=== PATIENT | female | born 1960 | race Caucasian/White ===

== ENCOUNTER 2016-05-29 09:21 | Emergency (ER) | payer OTHER ==
[~2016-05-29] VITALS: Ht 160 cm; Wt 72.6 kg
[2016-05-29 09:27] VITALS: BP 154/78; PULSE 91; RESP 16; TEMP 97.8; O2SAT 97
--- NOTE | 2016-05-29 09:27 | NUR ---
Placed in room 2 . Placed on quality assurance monitor, blood pressure machine and pulse oximeter. To gown for exam. Side rails up.Assumed care
--- NOTE | 2016-05-29 09:28 | NUR ---
ER at bedside examining patient.
--- NOTE | 2016-05-29 09:29 | NUR ---
Pt bib CF c/o CP since this AM. Pt reports chest pain resolving 03/27 at this time, however, pt c/o nausea and dizziness.
[2016-05-29 09:57] LABS: BASOPHILS % (AUTO) 0.2 % (0.0-2.0); EOSINOPHILS % (AUTO) 0.3 % (0.0-4.0); HEMATOCRIT 40.4 % (36-48); HEMOGLOBIN 13.2 g/dL (12.0-16.0); LYMPHOCYTES # (AUTO) 1.6 K/uL (1.0-5.5); LYMPHOCYTES % (AUTO) 25.9 % (20.5-51.5); MEAN CORPUSCULAR HEMOGLOBIN 30 pg (27-31); MEAN CORPUSCULAR HGB CONC 33 % (32-36); MEAN CORPUSCULAR VOLUME 91 fL (79.0-98.0); MONOCYTES # (AUTO) 0.3 K/uL (0.0-1.0); MONOCYTES % (AUTO) 5.8 % (1.7-9.3); NEUTROPHILS # (AUTO) 4.1 K/uL (1.8-7.7); NEUTROPHILS % (AUTO) 67.8 % (40.0-70.0); PLATELET COUNT (AUTO) 290 K/uL (130-430); RED BLOOD CELL COUNT(AUTO) 4.46 MIL/uL (4.2-6.2); RED CELL DISTRIBUTION WIDTH 12.8 % (9.0-15.0)
[2016-05-29 10:03] LABS: CREATININE 0.83 mg/dL (0.55-1.30); POTASSIUM 3.8 mmol/L (3.5-5.1)
[2016-05-29 10:07] LABS: INR 1.1 (0.8-1.2); PROTHROMBIN TIME 11.6 SECS (9.5-12.5)
[2016-05-29 10:09] LABS: ALBUMIN 4.1 g/dL (3.4-4.8); TOTAL BILIRUBIN 0.3 mg/dL (0.0-1.0); TOTAL PROTEIN, SERUM 7.5 g/dL (6.4-8.3)
--- NOTE | 2016-05-29 10:11 | NUR ---
nagi to fax med list and allergies.
[2016-05-29] MEDS ORDERED: LORazepam 2 MG/ML VIAL (FOR ER USE) IVP ONE (10:30)
--- NOTE | 2016-05-29 11:24 | NUR ---
Pt sleeping easily arousable. No acute distress noted.
[2016-05-29] MEDS ORDERED: MORPHINE 2 MG/ML INJ. SYRINGE IVP ONE (12:00)
--- NOTE | 2016-05-29 12:01 | NUR ---
speaking to Ren ESCOBAR for admission an transfer
--- NOTE | 2016-05-29 12:30 | NUR ---
Pt pain resolved.
--- NOTE | 2016-05-29 13:19 | NUR ---
Patient to be transferred to [facility] ER. Is being transferred due to higher level of care. Receiving facility has accepting physician and available space. ER physician has signed transfer form. Patient or responsible democrat has agreed to transfer and signed form. Patient belongings inventoried and will be sent with patient. Copy of nursing notes, lab reports, EKG, Physicians Orders and X-rays to be sent with patient. Report called to DAMON RN at receiving facility. Receiving physician is TANVI DISLA. [facility] ambulance service has been called for transfer. ETA is [id number].
[2016-05-29 14:15] VITALS: BP 135/86; PULSE 87; RESP 18; TEMP 98.2; O2SAT 97
--- NOTE | 2016-05-29 14:15 | NUR ---
PRN at bedside for pt transport. No acute distress noted.
== END 2016-05-29 14:15 | disposition short-term general hospital (02) ==
LOC: SED 09:21
DX: R07.89 Other chest pain (principal); R11.0 Nausea; R42 Dizziness and giddiness; M54.9 Dorsalgia, unspecified; E11.9 Type 2 diabetes mellitus without complications; K21.9 Gastro-esophageal reflux disease without esophagitis; G43.909 Migraine, unspecified, not intractable, without status migrainosus; F31.9 Bipolar disorder, unspecified
CPT/HCPCS: 36415; 71010; 80053; 80061; 83880; 84484; 85025; 85610; 85730; 93005; 96374; 96375; 99285; J2060; J2270